=== PATIENT | female | born 1995 | race Caucasian/White ===

== ENCOUNTER → 2023-09-19 07:32 | Outpatient (REF) | payer OTHER, SELFPAY | LOC: HWRAD 07:32 | PROVIDERS: ATTENDING PHYSICIAN Nurse Practitioner Family; FAMILY PHYSICIAN Family Medicine | DX: Z34.91 Encounter for supervision of normal pregnancy, unspecified, first trimester (principal) | CPT/HCPCS: 76801 ==

== ENCOUNTER → 2023-09-25 09:41 | Outpatient (REF) | payer OTHER, SELFPAY | LOC: PNTC 09:41 | PROVIDERS: ATTENDING PHYSICIAN Nurse Practitioner Family | DX: Z36.0 Encounter for antenatal screening for chromosomal anomalies (principal); Z36.82 Encounter for antenatal screening for nuchal translucency | CPT/HCPCS: 76801; 76813 ==

== ENCOUNTER → 2023-11-19 06:57 | Outpatient (REF) | payer OTHER, SELFPAY | LOC: PNTC 06:57 | PROVIDERS: ATTENDING PHYSICIAN Nurse Practitioner Family | DX: Z34.82 Encounter for supervision of other normal pregnancy, second trimester (principal) | CPT/HCPCS: 76805 ==

== ENCOUNTER → 2023-12-06 07:56 | Outpatient (REF) | payer OTHER, SELFPAY | LOC: HWRAD 07:56 | PROVIDERS: ATTENDING PHYSICIAN Obstetrics & Gynecology; FAMILY PHYSICIAN Family Medicine | DX: Z34.82 Encounter for supervision of other normal pregnancy, second trimester (principal); R31.21 Asymptomatic microscopic hematuria | CPT/HCPCS: 76770 ==

== ENCOUNTER 2024-04-04 17:12 | Inpatient (IN) | payer OTHER, SELFPAY ==
[2024-04-04 17:43] VITALS: BMI 26.5
[2024-04-04 17:45] VITALS: BP 119/69
[2024-04-04 17:56] LABS: % Basophils 0.3 % (0-2); % Eosinophils 0.5 % (0-6); % Immature Granulocytes 0.7 % (0-0.5); % Lymphocytes 17.5 % (20.5-51.1); % Monocytes 7.7 % (1.7-9.3); % Neutrophils 73.3 % (42.2-75.2); Absolute Eosinophils 0.1 10^3/uL (0-0.7); Absolute Immature Granulocytes 0.1 10^3/uL (0-0.05); Absolute Lymphocytes 1.9 10^3/uL (1.2-3.4); Absolute Monocytes 0.8 10^3/uL (0.1-0.6); Hematocrit 32.7 % (37.0-47.0); Hemoglobin 11.5 g/dL (12.0-16.0); Mean Corp Hgb Conc. 35.2 g/dL (33.0-37.0); Mean Corpuscular Hgb 30.3 pg (27.0-31.0); Mean Corpuscular Volume 86.3 fL (81.0-99.0); Mean Platelet Volume 10.5 fL (7.4-10.4); Nucleated Red Blood Cells % 0 %; Platelet Count 235 10^3/uL (130-400); Red Blood Cell Count 3.79 10^6/uL (4.20-5.40); Red Cell Dist. Width 13.3 % (11.5-14.5); White Blood Cell Count 10.9 10^3/uL (4.8-10.8)
[2024-04-05] MEDS: MOTRIN 600 MG PO ×2 (05:19→15:43)
[2024-04-05 06:04] LABS: Hematocrit 31.1 % (37.0-47.0); Hemoglobin 10.7 g/dL (12.0-16.0)
[2024-04-05] MEDS: PRENATAL PLUS 1 TABLET PO (08:30)
[2024-04-06] MEDS: PRENATAL PLUS 1 TABLET PO (07:44)
[2024-04-08 11:25] LABS: Syphilis/T. pallidum Ab Reflex Negative (Negative)
== END 2024-04-06 11:21 | disposition home or self-care (01) | DRG 807 ==
LOC: LDRP 17:12
PROVIDERS: Obstetrics & Gynecology; ADMITTING PHYSICIAN Obstetrics & Gynecology; FAMILY PHYSICIAN Family Medicine
PROC: 10E0XZZ Delivery of Products of Conception, External Approach (ICD-10-PCS; 2024-04-04)
PROC: 0HQ9XZZ Repair Perineum Skin, External Approach (ICD-10-PCS; 2024-04-04)
DX: O70.0 First degree perineal laceration during delivery (principal); Z37.0 Single live birth; Z3A.39 39 weeks gestation of pregnancy
CPT/HCPCS: 85014; 85018; 85025; 86780; 86850; 86900; 86901